=== PATIENT | male | born 1970 | race Caucasian/White ===

== ENCOUNTER 2017-06-16 18:04 | Inpatient (IN) | payer MEDICARE ==
[2017-06-16 18:30] LABS: ADD MAN DIFF? NO
[2017-06-16] MEDS: IOHEXOL 300 MG/ML 100ML VIAL. IV (18:30)
[2017-06-16 18:32] LABS: BASO % 0 % (0-3); EOS # 0.1 x10^3/uL (0.0-0.7); EOS % 2 % (0-3); HEMATOCRIT 38.9 % (39.0-53.0); HEMOGLOBIN 12.3 g/dL (13.0-17.5); LYMPH % 11 % (24-48); MEAN CORPUSCULAR HEMOGLOBIN 26 pg (25-35); MEAN CORPUSCULAR HGB CONC 32 g/dL (31-37); MEAN CORPUSCULAR VOLUME 82 fL (79-100); MONO # 0.7 x10^3/uL (0.0-1.1); MONO % 8 % (0-9); NEUT # 7.4 x10^3uL (1.8-7.7); NEUT % 80 % (31-73); PLATELET COUNT 273 x10^3/uL (140-400); RED BLOOD COUNT 4.76 x10^6/uL (4.30-5.70); RED CELL DISTRIBUTION WIDTH 19.2 % (11.5-14.5); WHITE BLOOD COUNT 9.3 x10^3/uL (4.0-11.0)
[2017-06-16 18:41] LABS: ANION GAP 9 (6-14); BLOOD UREA NITROGEN 9 mg/dL (8-26); BUN/CREATININE RATIO 8 (6-20); CALCIUM 9.4 mg/dL (8.5-10.1); CARBON DIOXIDE 30 mmol/L (21-32); CHLORIDE 101 mmol/L (98-107); CREATININE 1.2 mg/dL (0.7-1.3); GFR 64.6; GLUCOSE 117 mg/dL (70-99); POTASSIUM 4.1 mmol/L (3.5-5.1); SODIUM 140 mmol/L (136-145)
[2017-06-16] MEDS: IV NORMAL SALINE 1000ML BAG 1,000 ML IV (18:42)
[2017-06-16] MEDS: ONDANSETRON PF 4 MG/2 ML VIAL. IV (18:42)
[2017-06-16] MEDS ORDERED: CONTRAST GIVEN MC (18:45)
[2017-06-16 18:47] LABS: ALBUMIN 3.7 g/dL (3.4-5.0); ALBUMIN/GLOBULIN RATIO 0.9 (1.0-1.7); ALK PHOS 99 U/L (46-116); ALT (SGPT) 32 U/L (16-63); AST (SGOT) 18 U/L (15-37); LIPASE 114 U/L (73-393); TOTAL BILIRUBIN 0.4 mg/dL (0.2-1.0); TOTAL PROTEIN 7.9 g/dL (6.4-8.2)
[2017-06-16 18:49] LABS: INR 1.7 (0.8-1.1); PROTHROMBIN TIME PATIENT 19.4 SEC (11.7-14.0)
[2017-06-16 19:23] LABS: BILIRUBIN,URINE SMALL (NEG); CLARITY,URINE CLEAR; COLOR,URINE AMBER; GLUCOSE,URINE NEGATIVE (NEG); NITRITE,URINE NEGATIVE (NEG); PH,URINE 7.5; PROTEIN,URINE >=300 mg/dL (NEG-TRACE)
[2017-06-16 19:36] LABS: AMORPHOUS SEDIMENT,UR PRESENT /HPF; BACTERIA,URINE FEW /HPF (0-FEW); GRANULAR CASTS,URINE OCCASIONAL /HPF; RBC,URINE 0 /HPF (0-2); SQUAMOUS EPITHELIAL CELL,UR MOD /LPF
[2017-06-16] MEDS ORDERED: ONDANSETRON PF 4 MG/2 ML VIAL. IV (21:00)
[2017-06-16] MEDS: fentaNYL PF VIAL 100 MCG/2 ML VIAL IV (22:25)
[2017-06-17 04:19] LABS: ADD MAN DIFF? NO
[2017-06-17 04:26] LABS: BASO % 0 % (0-3); EOS # 0.2 x10^3/uL (0.0-0.7); EOS % 2 % (0-3); HEMATOCRIT 36.5 % (39.0-53.0); HEMOGLOBIN 11.3 g/dL (13.0-17.5); LYMPH # 1.4 x10^3/uL (1.0-4.8); LYMPH % 17 % (24-48); MEAN CORPUSCULAR HEMOGLOBIN 26 pg (25-35); MEAN CORPUSCULAR HGB CONC 31 g/dL (31-37); MEAN CORPUSCULAR VOLUME 83 fL (79-100); MONO # 0.8 x10^3/uL (0.0-1.1); MONO % 11 % (0-9); NEUT # 5.5 x10^3uL (1.8-7.7); NEUT % 70 % (31-73); PLATELET COUNT 244 x10^3/uL (140-400); RED CELL DISTRIBUTION WIDTH 19.2 % (11.5-14.5); WHITE BLOOD COUNT 7.9 x10^3/uL (4.0-11.0)
[2017-06-17 04:55] LABS: ALBUMIN 3.1 g/dL (3.4-5.0); ALBUMIN/GLOBULIN RATIO 0.8 (1.0-1.7); ALK PHOS 85 U/L (46-116); ALT (SGPT) 22 U/L (16-63); ANION GAP 7 (6-14); AST (SGOT) 14 U/L (15-37); BLOOD UREA NITROGEN 11 mg/dL (8-26); BUN/CREATININE RATIO 9 (6-20); CALCIUM 8.7 mg/dL (8.5-10.1); CARBON DIOXIDE 32 mmol/L (21-32); CHLORIDE 102 mmol/L (98-107); CREATININE 1.2 mg/dL (0.7-1.3); GFR 64.6; GLUCOSE 157 mg/dL (70-99); POTASSIUM 3.8 mmol/L (3.5-5.1); SODIUM 141 mmol/L (136-145); TOTAL BILIRUBIN 0.4 mg/dL (0.2-1.0); TOTAL PROTEIN 6.9 g/dL (6.4-8.2)
[2017-06-17] MEDS: IV NORMAL SALINE 1000ML BAG 1,000 ML IV (11:00)
[2017-06-17] MEDS: cefTRIAXone IV Push 1 GM VIAL. IVP (14:00)
[2017-06-18] MEDS ORDERED: ONDANSETRON PF 4 MG/2 ML VIAL. IV ×2 (01:15→11:15)
[2017-06-18] MEDS ORDERED: fentaNYL PF VIAL 100 MCG/2 ML VIAL IV (01:15)
[2017-06-18] MEDS: MORPHINE SULFATE 4 MG/ML DISP.SYRIN. IV (01:38)
[2017-06-18] MEDS: IV NORMAL SALINE 1000ML BAG 1,000 ML IV ×2 (01:39→13:40)
[2017-06-18 04:10] LABS: ADD MAN DIFF? NO
[2017-06-18 04:18] LABS: BASO % 1 % (0-3); EOS # 0.2 x10^3/uL (0.0-0.7); EOS % 3 % (0-3); HEMATOCRIT 34.3 % (39.0-53.0); HEMOGLOBIN 10.7 g/dL (13.0-17.5); LYMPH # 1.5 x10^3/uL (1.0-4.8); LYMPH % 25 % (24-48); MEAN CORPUSCULAR HEMOGLOBIN 26 pg (25-35); MEAN CORPUSCULAR HGB CONC 31 g/dL (31-37); MEAN CORPUSCULAR VOLUME 83 fL (79-100); MONO # 0.6 x10^3/uL (0.0-1.1); MONO % 10 % (0-9); NEUT # 3.7 x10^3uL (1.8-7.7); NEUT % 62 % (31-73); PLATELET COUNT 220 x10^3/uL (140-400); RED BLOOD COUNT 4.13 x10^6/uL (4.30-5.70); RED CELL DISTRIBUTION WIDTH 19.4 % (11.5-14.5); WHITE BLOOD COUNT 5.9 x10^3/uL (4.0-11.0)
[2017-06-18] MEDS ORDERED: traMADol 50 MG TABLET PO (11:15)
[2017-06-18] MEDS ORDERED: hydrALAZINE 20 MG/ML VIAL. IVP (11:15)
[2017-06-18] MEDS ORDERED: DEXTROSE 50% 25 GM / 50ML DISP.SYRIN. IV (11:15)
[2017-06-18] MEDS ORDERED: MORPHINE SULFATE 4 MG/ML DISP.SYRIN. IV (11:15)
[2017-06-18] MEDS ORDERED: ACETAMINOPHEN 325 MG TABLET. PO (11:15)
[2017-06-18] MEDS: INSULIN ASPART 300 UNITS/3 ML INSULN.PEN SQ ×2 (12:00→16:46)
[2017-06-18] MEDS: CYANOCOBALAMIN (VITAMIN B-12) 1,000 MCG TABLET. PO (12:15)
[2017-06-18] MEDS: cefTRIAXone IV Push 1 GM VIAL. IVP (12:15)
[2017-06-18] MEDS: ARIPiprazole 5 MG TABLET PO (12:16)
[2017-06-18] MEDS: POTASSIUM CHLORIDE 20 MEQ TABLET.ER. PO (12:16)
[2017-06-18] MEDS: DOCUSATE SODIUM 100 MG CAPSULE. PO (12:16)
[2017-06-18] MEDS: FUROSEMIDE 40 MG TABLET. PO (12:16)
[2017-06-18 13:51] LABS: POC GLUCOSE 122 mg/dL (70-99)
[2017-06-18 16:40] LABS: POC GLUCOSE 65 mg/dL (70-99)
[2017-06-18 17:16] LABS: POC GLUCOSE 117 mg/dL (70-99)
[2017-06-18] MEDS: CYCLOBENZAPRINE 10 MG TABLET. PO (20:20)
[2017-06-18 20:35] LABS: POC GLUCOSE 76 mg/dL (70-99)
[2017-06-18 21:12] LABS: C DIFF BY PCR Negative (Negative)
[2017-06-19] MEDS: IV NORMAL SALINE 1000ML BAG 1,000 ML IV (03:00)
[2017-06-19 04:13] LABS: ADD MAN DIFF? NO
[2017-06-19 04:24] LABS: BASO % 1 % (0-3); EOS # 0.2 x10^3/uL (0.0-0.7); EOS % 3 % (0-3); HEMATOCRIT 31.4 % (39.0-53.0); HEMOGLOBIN 9.9 g/dL (13.0-17.5); LYMPH # 1.4 x10^3/uL (1.0-4.8); LYMPH % 26 % (24-48); MEAN CORPUSCULAR HEMOGLOBIN 26 pg (25-35); MEAN CORPUSCULAR HGB CONC 31 g/dL (31-37); MEAN CORPUSCULAR VOLUME 82 fL (79-100); MONO # 0.5 x10^3/uL (0.0-1.1); MONO % 10 % (0-9); NEUT # 3.4 x10^3uL (1.8-7.7); NEUT % 61 % (31-73); PLATELET COUNT 185 x10^3/uL (140-400); RED BLOOD COUNT 3.83 x10^6/uL (4.30-5.70); WHITE BLOOD COUNT 5.5 x10^3/uL (4.0-11.0)
[2017-06-19 04:44] LABS: ANION GAP 6 (6-14); BLOOD UREA NITROGEN 8 mg/dL (8-26); CALCIUM 8.8 mg/dL (8.5-10.1); CARBON DIOXIDE 32 mmol/L (21-32); CHLORIDE 101 mmol/L (98-107); CREATININE 1.3 mg/dL (0.7-1.3); GFR 58.9; GLUCOSE 139 mg/dL (70-99); POTASSIUM 3.7 mmol/L (3.5-5.1); SODIUM 139 mmol/L (136-145)
[2017-06-19] MEDS: INSULIN ASPART 300 UNITS/3 ML INSULN.PEN SQ ×2 (08:00→11:32)
[2017-06-19] MEDS: FUROSEMIDE 40 MG TABLET. PO (08:52)
[2017-06-19] MEDS: CYANOCOBALAMIN (VITAMIN B-12) 1,000 MCG TABLET. PO (08:52)
[2017-06-19] MEDS: POTASSIUM CHLORIDE 20 MEQ TABLET.ER. PO (08:52)
[2017-06-19] MEDS: ARIPiprazole 5 MG TABLET PO (08:52)
[2017-06-19 10:57] LABS: POC GLUCOSE 97 mg/dL (70-99)
[2017-06-19 10:57] LABS: POC GLUCOSE 95 mg/dL (70-99)
== END 2017-06-19 15:09 | disposition home or self-care (01) | DRG 389 ==
LOC: ER 18:04 → 4 NORTH 20:49
DX: K56.600 Partial intestinal obstruction, unspecified as to cause (principal); D68.9 Coagulation defect, unspecified; Z68.43 Body mass index [BMI] 50.0-59.9, adult; A08.4 Viral intestinal infection, unspecified; E66.01 Morbid (severe) obesity due to excess calories; K56.7 Ileus, unspecified; E11.9 Type 2 diabetes mellitus without complications; F32.9 Major depressive disorder, single episode, unspecified; F43.10 Post-traumatic stress disorder, unspecified; G47.00 Insomnia, unspecified; G47.30 Sleep apnea, unspecified; I10 Essential (primary) hypertension; K42.9 Umbilical hernia without obstruction or gangrene; Z79.01 Long term (current) use of anticoagulants; Z86.718 Personal history of other venous thrombosis and embolism
CPT/HCPCS: 36415; 74018; 74022; 74177; 80048; 80053; 81001; 82962; 83690; 85025; 85610; 87045; 87086; 87324; 93005; 96361; 96374; 97161-GP; 97165-GO; 99285-25; J0696; J1650; J1815; J2270; J2405; J3010; J7030; Q9967

== ENCOUNTER 2020-08-19 01:39 | Emergency (ER) | payer MEDICARE ==
[~2020-08-19] VITALS: Ht 167.6 cm; Wt 136.4 kg
[~2020-08-19 01:39] MED LIST: ARIP5TAB13 PO; CYAN100072 PO; CYCL10TA2 PO; FURO-68 PO; METF500T16 PO; POTA20TA4 PO; TRAZ-123 PO; WARF2TAB96 PO
[2020-08-19] MEDS ORDERED: DIPH,PERTUSS(ACELL),TET VAC/PF 0.5 ML SYRINGE. VAX IM ONE (02:00)
--- NOTE | 2020-08-19 02:13 | RAD ---
EXAM: CT HEAD WITHOUT CONTRAST. HISTORY: Trauma, anticoagulated. TECHNIQUE: Computed tomography of the head was performed without intravenous contrast. One or more of the following individualized dose reduction techniques were utilized for this examination: 1. Automated exposure control. 2. Adjustment of the mA and/or kV according to patient size. 3. Use of iterative reconstruction technique. COMPARISON: None. FINDINGS: There is no intracranial hemorrhage. Hypoattenuation within the periventricular white matte r indicates mild to moderate chronic microangiopathic change. The ventricles are normal in size and p osition. There is a moderate right frontal scalp hematoma. The visualized paranasal sinuses appear clear. The orbits are unremarkable. The temporal bones are unremarkable. The calvarium reveals no suspicious les ions. IMPRESSION: 1. Moderate right frontal scalp hematoma. No acute intracranial findings. 2. 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 Electronically signed by: Serafin Black MD (08/19/2020 2:11 AM) [facility]
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
[2020-08-19] MEDS ORDERED: NEOMY/BACITR/POLYMYXIN OINT PACKET. TP ONE (02:30)
[2020-08-19 02:38] VITALS: BP 188/84
== END 2020-08-19 02:50 | disposition home or self-care (01) ==
LOC: ER 01:39
DX: S00.03XA Contusion of scalp, initial encounter (principal); E11.9 Type 2 diabetes mellitus without complications; I10 Essential (primary) hypertension; Z86.718 Personal history of other venous thrombosis and embolism; Z87.891 Personal history of nicotine dependence; Y04.2XXA Assault by strike against or bumped into by another person, initial encounter; Y93.89 Activity, other specified; Y92.89 Other specified places as the place of occurrence of the external cause; Y99.8 Other external cause status
CPT/HCPCS: 70450; 90471; 90715; 99284-25